=== PATIENT | female | born 1985 | race Caucasian/White ===

== ENCOUNTER → 2017-07-22 | Outpatient (CLI) | payer MEDICARE, OTHER ==
[~2017-07-22] MED LIST: ALPR.25 PO; HYDACE5 PO; PRAZ1 PO; TRAZ50 PO; VENL75ER PO
== END ==
LOC: LAB SHORT 13:47 → LAB 13:47
PROVIDERS: Registered Nurse Community Health
DX: Z01.419 Encounter for gynecological examination (general) (routine) without abnormal findings (principal); Z12.4 Encounter for screening for malignant neoplasm of cervix
CPT/HCPCS: 87624; G0123

== ENCOUNTER → 2017-08-11 | Outpatient (CLI) | payer MEDICARE, OTHER | LOC: LAB SHORT 08:01 → PLD 08:01 | DX: R87.610 Atypical squamous cells of undetermined significance on cytologic smear of cervix (ASC-US) (principal); Z86.19 Personal history of other infectious and parasitic diseases | CPT/HCPCS: 88305 ==

== ENCOUNTER → 2018-04-30 | Outpatient (CLI) | payer MEDICARE, OTHER ==
[~2018-04-30] MED LIST changes: +Ativan0.5 MG PO
[2018-05-04 02:10] LABS: CHLAMYDIA TRACHOMATIS, NAA Negative (Negative); NEISSERIA GONORRHOEAE, NAA Negative (Negative)
== END | disposition home or self-care (01) ==
LOC: LAB 17:08 → LAB SHORT 17:08
PROVIDERS: Nurse Practitioner Family
DX: Z11.3 Encounter for screening for infections with a predominantly sexual mode of transmission (principal); R10.2 Pelvic and perineal pain; Z20.2 Contact with and (suspected) exposure to infections with a predominantly sexual mode of transmission
CPT/HCPCS: 87491; 87591

== ENCOUNTER → 2018-08-04 | Outpatient (CLI) | payer MEDICARE, OTHER ==
[2018-08-09 15:07] LABS: HPV 16 Negative (Negative); HPV 18 Negative (Negative); HPV OTHER HR TYPES Positive (Negative)
== END ==
LOC: LAB 13:54 → LAB SHORT 13:54
PROVIDERS: Registered Nurse Community Health
DX: Z12.4 Encounter for screening for malignant neoplasm of cervix (principal)
CPT/HCPCS: 87624; 87625; G0123

== ENCOUNTER → 2019-11-23 | Outpatient (CLI) | payer MEDICARE, OTHER | LOC: PLD 07:42 → LAB SHORT 07:42 | DX: D06.0 Carcinoma in situ of endocervix (principal) | CPT/HCPCS: 88305 ==

== ENCOUNTER → 2020-12-19 | Outpatient (CLI) | payer MEDICARE, OTHER ==
[2020-12-21 11:10] LABS: HPV 16 Negative (Negative); HPV 18 Negative (Negative); HPV OTHER HR TYPES Positive (Negative)
== END ==
LOC: LAB 15:25 → LAB SHORT 15:25
PROVIDERS: Registered Nurse Community Health
DX: Z12.4 Encounter for screening for malignant neoplasm of cervix (principal); Z88.0 Allergy status to penicillin; Z91.038 Other insect allergy status
CPT/HCPCS: 87624; G0123

== ENCOUNTER 2023-09-16 08:14 | Inpatient (IN) | payer MEDICARE, OTHER ==
[~2023-09-16] VITALS: Ht 172.7 cm; Wt 56.7 kg
[2023-09-16] VITALS (14 sets, daily range): BP systolic 93–122; BP diastolic 55–76
[2023-09-16] MEDS ORDERED: FentaNYL Citrate 50 MCG/ML 2 ML Injection ONE ×2 (08:20→12:54)
[2023-09-16] MEDS ORDERED: Ketorolac Tromethamine 30mg Vial IV ONE (08:30)
[2023-09-16] MEDS ORDERED: FentaNYL Citrate 50 MCG/ML 2 ML Injection IV ONE (08:30)
[2023-09-16] MEDS ORDERED: Diphth,Pertuss(Acell),Tet Vac 0.5 ML VIAL IM ONE (08:30)
[2023-09-16] MEDS ORDERED: Midazolam HCl 1MG / ML 2ML Vial IV ONE (08:30)
[2023-09-16] MEDS ORDERED: HYDROmorphone HCl/Pf 1MG SYR IV ONE (08:35)
[2023-09-16] MEDS ORDERED: CeFAZolin Sodium 1,000 MG in NS 50 ML IV ONE ×2 (08:35→09:00)
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
[2023-09-16] MEDS ORDERED: propofoL 20 ML IV ONE (12:54)
[2023-09-16] MEDS ORDERED: Lidocaine HCl 1% 5 ML SYR INJ ONE (12:55)
[2023-09-16] MEDS ORDERED: Lactated Ringer's 1,000 ML IV SCH (13:00)
[2023-09-16] MEDS ORDERED: CeFAZolin Sodium 2,000 MG in NS 100 ML IV SCH (13:00)
[2023-09-16] MEDS ORDERED: Midazolam HCl 1MG / ML 2ML Vial IV PRN (13:00)
[2023-09-16] MEDS ORDERED: Ondansetron HCl 2 MG / ML 2ML Vial ONE (14:29)
[2023-09-16] MEDS ORDERED: Dexamethasone Sod Phos 10 MG/ML 1ML VIAL ONE (14:29)
[2023-09-16] MEDS ORDERED: ePHEDrine Sulfate 50 MG/ML 1ML Injection ONE (14:29)
[2023-09-16] MEDS ORDERED: Phenylephrine HCl 100 MCG/ML-NS 10MLSYR (1MG/10ML) ONE (14:32)
[2023-09-16] MEDS ORDERED: Bupivacaine 0.5% HCl 5 MG/ML 30MLVIAL ONE (14:57)
--- NOTE | 2023-09-16 16:10 | NUR ---
PATIENT ARRIVED TO THE FLOOR FROM PACU TODAY. POD 0 RIGHT ARM I&D PATIENT IS DROWSY BUT OPENS HER EYES TO VERBAL STIMULI. PATIENT IS CURRENTLY ON RA WITH >90% OXYGEN SATS. SHE DENIES PAIN AT THIS TIME. HER RIGHT ARM HAS GAUZE AND GERARDO WRAP THAT IS C/D/I. HER RADIAL PULSES ARE STRONG AND WARM TO TOUCH. SHE IS LAYING IN THE GURNEY BED WITH CALL LIGHT IN REACH.
[2023-09-16] MEDS ORDERED: Ondansetron HCl 2 MG / ML 2ML Vial IV PRN (16:20)
[2023-09-16] MEDS ORDERED: HYDROcodone 5-APAP 325 TAB PO PRN (16:20)
--- NOTE | 2023-09-16 17:35 | NUR ---
SHIFT SUMMARY: POD 0 RIGHT ARM I&D NO SIGNIFICANT CHANGES SINCE PATIENT ARRIVED TO THE FLOOR. PATIENT CONTINUES TO BE DROWSY AND WILL OPEN HER EYES WHEN REPOSITIONING HER RIGHT ARM BUT THEN CLOSES THEM AFTER THE REPOSITIONING. HER RIGHT ARM HAS AN GERARDO WRAP WITH GAUZE UNDERNEATH THAT ARE C/D/I. RADIAL PULSES ARE STRONG AND WARM TO TOUCH. PATIENT CONTINUES TO LAY IN THE GURNEY WITH CALL LIGHT IN REACH.
[2023-09-16] MEDS ORDERED: OXYC5 PO (18:34)
[2023-09-16] MEDS ORDERED: AMOCLA500 PO (18:34)
--- NOTE | 2023-09-16 19:37 | NUR ---
DISCHARGE NOTE: PATIENT WAS EDUCATED ON DISCHARGE INSTRUCTIONS. PATIENT VERBALIZED UNDERSTANDING OF INSTRUCTIONS AND HAD NO FURTHER QUESTIONS AT THIS TIME. BOTH IV'S WERE TAKEN OUT AND WNL. PATIENT HAS DENIED PAIN AT THIS TIME. HER HARD PERSCRIPTIONS WERE PLACED IN HER DISCHARGE FOLDER WHICH WAS PLACED IN HER PURSE. HER RIGHT ARM IS IN A SPLINT WITH GERARDO WRAP THAT IS C/D/I. SHE DENIES NUMBNESS OR TINGLING IN ALL EXTREMITIES. SHE IS INDEP. TO THE BATHROOM. SHE IS TOLERATING PO INTAKE AND IS VOIDING. PATIENT IS DRESSED AND HAS PERSONAL ITEMS IN THE ROOM GATHERED. PATIENT IS WAITING FOR HER RIDE TO COME AND PICK HER UP TO TAKE HER HOME.
--- NOTE | 2023-09-16 19:56 | NUR ---
DISCHARGE COMPLETED BY ABDI RN AND IV REMOVED. PT IS WAITING FOR HER RIDE AT THIS TIME.
--- NOTE | 2023-09-16 20:49 | NUR ---
DISCHARGE PT RIDE HERE, PT WHEELED OUT BY AID WITH BELONGINGS IN PLACE.
== END 2023-09-16 22:30 | disposition home or self-care (01) | DRG 572 ==
LOC: ER 08:14 → SURS 12:11
PROVIDERS: ADMIT Orthopaedic Surgery Sports Medicine
PROC: 0JBG0ZZ Excision of Right Lower Arm Subcutaneous Tissue and Fascia, Open Approach (ICD-10-PCS; principal; 2023-09-16 12:45)
DX: S51.851A Open bite of right forearm, initial encounter (principal); W54.0XXA Bitten by dog, initial encounter; Z88.0 Allergy status to penicillin; Z88.8 Allergy status to other drugs, medicaments and biological substances; F41.9 Anxiety disorder, unspecified; F43.10 Post-traumatic stress disorder, unspecified
CPT/HCPCS: 73090; 90715; J0690; J1100; J1170; J1885; J2250; J2371; J2405; J2704; J3010; J7120

== ENCOUNTER 2023-09-22 19:50 | Emergency (ER) | payer OTHER, MEDICARE ==
[~2023-09-22] VITALS: Ht 170.2 cm; Wt 90.7 kg
[~2023-09-22 19:50] MED LIST changes: +AMOCLA500 PO; +OXYC5 PO
[2023-09-22 20:25] LABS: BASOPHILS ABSOLUTE AUTO 0.03 K/mm3 (0.00-0.23); BASOPHILS PERCENT AUTO 1 % (0-2); EOSINOPHILS ABSOLUTE AUTO 0.23 K/mm3 (0.00-0.68); EOSINOPHILS PERCENT AUTO 4 % (0-6); Hemoglobin 8.4 g/dL (11.5-16.0); IMMATURE GRAN ABSOLUTE AUTO 0.03 K/mm3 (0.00-0.10); IMMATURE GRAN PERCENT AUTO 1 % (0-1); LYMPHOCYTES ABSOLUTE AUTO 1.98 K/mm3 (0.84-5.20); LYMPHOCYTES PERCENT AUTO 34 % (21-46); MONOCYTES ABSOLUTE AUTO 0.41 K/mm3 (0.16-1.47); MONOCYTES PERCENT AUTO 7 % (4-13); Mean Corpuscular HGB 28.5 pg (26.0-34.0); Mean Corpuscular HGB Conc 31.1 g/dL (31.5-36.5); Mean Corpuscular Volume 92 fL (80-100); Mean Platelet Volume 8.7 fL (9.1-12.4); NEUTROPHILS ABSOLUTE AUTO 3.08 K/mm3 (1.96-9.15); NEUTROPHILS PERCENT AUTO 54 % (41-73); Platelet Count 355 K/mm3 (150-400); RDW Coefficient Variation 15.6 % (11.7-14.2); RDW Standard Deviation 51.8 fL (35.1-46.3); Red Blood Cell Count 2.95 M/mm3 (3.80-5.20); White Blood Cell Count 5.76 K/mm3 (4.00-11.30)
[2023-09-22 20:45] LABS: Albumin, Blood 3.2 g/dL (3.4-5.0); Bilirubin, Total 0.3 mg/dL (0.1-1.0); Bun/Creatinine Ratio 21.8 (12.0-20.0); Calcium, Blood 8.2 mg/dL (8.5-10.1); Creatinine, Blood 0.69 mg/dL (0.40-1.00); Globulin, Blood 3.1 g/dL (2.2-4.0); Potassium, Blood 3.9 mmol/L (3.5-5.5); Total Protein, Blood 6.3 g/dL (6.4-8.2)
[2023-09-23 01:11] VITALS: BP 118/70
== END 2023-09-23 01:13 | disposition home or self-care (01) ==
LOC: ER 19:50
PROVIDERS: Physician Assistant
DX: S51.851D Open bite of right forearm, subsequent encounter (principal); F43.10 Post-traumatic stress disorder, unspecified; W54.0XXD Bitten by dog, subsequent encounter; Z88.0 Allergy status to penicillin; Z91.048 Other nonmedicinal substance allergy status; Z88.4 Allergy status to anesthetic agent; Z91.038 Other insect allergy status
CPT/HCPCS: 73201; 80053; 83605; 85025; 87040; 93005; 93010; 99284-25; Q9967